=== PATIENT | female | born 1950 | race Caucasian/White ===

== ENCOUNTER 2024-03-06 17:56 | Emergency (ER) | payer MEDICARE ==
[~2024-03-06] VITALS: Ht 157.5 cm; Wt 75.0 kg
[2024-03-06 18:00] VITALS: BP 123/66; PULSE 75; RESP 16; O2SAT 97
[2024-03-06 18:52] VITALS: TEMP 98
[2024-03-06] MEDS ORDERED: HYDR-3965 PO (18:57)
== END 2024-03-06 18:55 | disposition home or self-care (01) ==
LOC: ER 17:57
DX: S92.354A Nondisplaced fracture of fifth metatarsal bone, right foot, initial encounter for closed fracture (principal); Z91.041 Radiographic dye allergy status; W01.0XXA Fall on same level from slipping, tripping and stumbling without subsequent striking against object, initial encounter; Y93.89 Activity, other specified; Y92.89 Other specified places as the place of occurrence of the external cause; Y99.8 Other external cause status
CPT/HCPCS: 73630; 99284; L4360